=== PATIENT | female | born 1985 | race Caucasian/White ===

== ENCOUNTER 2017-03-27 20:30 | Emergency (ER) | payer OTHER ==
[~2017-03-27] VITALS: Ht 170.2 cm; Wt 61.2 kg
[2017-03-27 21:11] VITALS: BP 147/86
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
--- NOTE | 2017-03-27 23:48 | NUR ---
AMBULATED TO ER OF5
--- NOTE | 2017-03-28 01:03 | NUR ---
PT AMB TO ER BED 10
[2017-03-28] MEDS ORDERED: KETOROLAC 60 MG/2 ML VIAL IM ONE (01:45)
[2017-03-28] MEDS ORDERED: METHOCARBAMOL 500 MG TAB PO ONE (01:45)
--- NOTE | 2017-03-28 01:45 | NUR ---
Patient appears to be resting comfortably in bed. Vital Signs within normal limits. Respirations even and unlabored.
[2017-03-28 02:22] VITALS: BP 108/76
--- NOTE | 2017-03-28 02:22 | NUR ---
Patient discharged with v/s stable. Written and verbal after care instructions given and explained. Patient alert, oriented and verbalized understanding of instructions. Ambulatory with steady gait. All questions addressed prior to discharge. ID band removed. Patient advised to follow up with PMD. Rx of ROBAXIN AND MOTRIN given. Patient educated on indication of medication including possible reaction and side effects. Opportunity to ask questions provided and answered.
== END 2017-03-28 02:22 | disposition home or self-care (01) ==
LOC: MED 20:30
DX: S39.012A Strain of muscle, fascia and tendon of lower back, initial encounter (principal); S13.4XXA Sprain of ligaments of cervical spine, initial encounter; V43.92XA Unspecified car occupant injured in collision with other type car in traffic accident, initial encounter; Y93.89 Activity, other specified; Y92.89 Other specified places as the place of occurrence of the external cause; Y99.8 Other external cause status
CPT/HCPCS: 72040; 72100; 81025; 96372; 99284; J1885

== ENCOUNTER 2017-08-08 20:04 | Emergency (ER) | payer OTHER ==
[~2017-08-08] VITALS: Ht 172.7 cm; Wt 65.8 kg
[2017-08-08 20:08] VITALS: BP 134/79
--- NOTE | 2017-08-08 20:11 | NUR ---
TO LOBBY DAXA VSS. A/W BED, ERICA NOTED
--- NOTE | 2017-08-08 21:06 | NUR ---
PT.BIB MOTHER TO ER BED 1
--- NOTE | 2017-08-08 21:10 | NUR ---
31/F BIB SELF C/O HEADACHE AND LUMPS ON LEFT SIDE OF HER HEAD X1 WEEK. PATIENT STATES PRESSURE AND PAIN 7/10 WHEN LAYING ON THE LEFT SIDE OF HER HEAD, BUT WHILE SITTING UPRIGHT DENIES PAIN. PATIENT STATES WEAKNESS AND DIZZINESS BUT DENIES CP, FEVER, SOB, LOC. NO SIGNS OR SYMPTOMS OF ACUTE DISTRESS NOTED AT THIS TIME. WILL CONTINUE TO MONITOR.
[2017-08-08 23:14] VITALS: BP 134/79
--- NOTE | 2017-08-08 23:15 | NUR ---
Patient discharged with v/s stable. Written and verbal after care instructions given and explained. Patient verbalized understanding. Ambulatory with steady gait. All questions addressed prior to discharge. Advised to follow up with PMD.
== END 2017-08-08 23:15 | disposition home or self-care (01) ==
LOC: MED 20:04
DX: R59.1 Generalized enlarged lymph nodes (principal)
CPT/HCPCS: 99281

== ENCOUNTER 2018-05-05 07:39 | Day surgery (SDC) | payer OTHER ==
[~2018-05-05] VITALS: Ht 172.7 cm; Wt 72.6 kg
[2018-05-05] MEDS ORDERED: fentaNYL 0.05 MG/ML VIAL ONE (09:52)
[2018-05-05] MEDS ORDERED: LIDOCAINE 2% 100 MG/5 ML UJET TP ONE (09:52)
== END 2018-05-05 11:01 | disposition home or self-care (01) ==
LOC: MDS 07:39 → MMU 07:44 → MDS 11:01
PROVIDERS: ATTEND Internal Medicine Gastroenterology
DX: K64.8 Other hemorrhoids (principal); G43.909 Migraine, unspecified, not intractable, without status migrainosus
CPT/HCPCS: 45350; 81025; J3010